=== PATIENT | male | born 1965 | race Caucasian/White ===

== ENCOUNTER 2017-08-31 18:05 | Emergency (ER) | payer OTHER ==
[~2017-08-31] VITALS: Ht 177.8 cm; Wt 78.6 kg
[2017-08-31 18:07] VITALS: TEMP 36.7; Ht 177.8 cm; Wt 78.6 kg
--- NOTE | 2017-08-31 18:38 | EMERGENCY ROOM VISIT NOTE ---
History First contact with patient: 18:11 Chief Complaint: ARM PAIN Stated Complaint: INJURED LEFT ARM/HIP - History of Present Illness The patient is a 52 year old male who presents to the Emergency Room via private vehicle with complaints of "injured left arm/hip". 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 He notes that the cow struck his right side and he has pain on his left side. He points to the left flank as location of pain in his left elbow region. He rates the pain as a 4/10. He estimates the weight of the count to be 8855-8008 pounds. He denies loss of consciousness. He denies any chest pain, shortness of breath, abdominal pain. Review of Systems A complete 10-point Review of Systems was discussed with the patient, with pertinent positives and negatives listed in the History of Present Illness. All remaining Review of Systems questions can be considered negative unless otherwise specified. Past Medical/Surgical History No pertinent. Family History Noncontributory. Social History Smoking Status: Never Smoker Patient is employed and lives locally. Current/Historical Medications Scheduled PRN Ibuprofen (Advil), 200-600 MG PO Q4H PRN for Pain or Fever Physical Exam Vital Signs Date Time Temp Pulse Resp B/P (MAP) Pulse Ox O2 Delivery O2 Flow Rate FiO2 08/31/17 20:25 75 16 140/83 98 Room Air 08/31/17 19:47 82 20 137/73 97 Room Air 08/31/17 18:07 36.7 84 16 148/80 96 Room Air Physical Exam VITAL SIGNS - Vital signs and nursing notes were reviewed. Stable. GENERAL -52-year-old male appearing his stated age who is in no acute distress. Communicates well with provider and answers questions appropriately. SKIN - Gross examination of the entire body surface demonstrates no lacerations to the body surface. These lacerations will not require repair. There is no ecchymosis noted over the body. There is note of a small abrasion just above the olecranon process of the left arm. HEAD - Normocephalic, Atraumatic. No Hill's Sign or Raccoon's Eyes. No depressed skull fractures palpable. EYES - PERRL with EOMI bilaterally. Without subconjunctival hemorrhage. Palpebral conjunctiva pink and moist with no injection. EARS - No deformities of external structures noted on gross examination bilaterally. No hemotympanum present. No tympanic perforation noted. Handle of malleus, umbo, cone of light, pars tensa/flaccid all easily visualized. NOSE - Midline and without cyanosis. No epistaxis or clear watery discharge noted. Septum midline without deviation. No septal hematoma noted. No overlying ecchymosis noted. MOUTH/OROPHARYNX - Without perioral cyanosis. Tongue midline with equal elevation of palate bilaterally. No blood noted in the oropharynx. No tonsillar hypertrophy, erythema, or exudates noted. No dental fractures noted. NECK -no tenderness to palpation over the cervical spinous processes. No cervical paraspinal muscle tenderness noted. LUNGS - Chest wall symmetric without accessory muscle use, intercostals retractions, or central cyanosis. No flail chest or depressed fractures noted. No paradoxical chest wall movements noted. Normal vesicular breath sounds CTA B/ L. No wheezes, rales, or rhonchi appreciated. CARDIAC - RRR with S1/S2. No murmur, rubs, or gallops appreciated. ABDOMEN - Abdominal contour normal and without pulsations or visible masses. BS normoactive all four quadrants. No rebound tenderness or guarding noted. Negative Sadiq's or Tello Klein's Signs. No tenderness, palpable masses, hepatosplenomegaly, or ascites noted. Left flank tenderness noted. EXTREMITIES - No gross deformities noted of the extremities. There is over the left elbow, and the tenderness to palpation left flank just above the left hip. No hip tenderness. +5/5 strength noted in UE/LE bilaterally. NEUROLOGIC - Cranial nerves II through XII grossly intact. Sensory intact to light touch throughout. PSYCH - A&O, and cooperates fully with examiner. Pt is very pleasant and interacts well with examiner. Medical Decision & Procedures ER Provider Diagnostic Interpretation: LEFT ELBOW 3 VIEWS CLINICAL HISTORY: Left arm injury. FINDINGS: 3 views of the left elbow are obtained. No prior studies are available for comparison at the time of dictation. The skeletal structures are well mineralized. No fracture is seen. The joint spaces of the elbow are well-maintained. The overlying soft tissues are normal as imaged. IMPRESSION: There is no radiographic evidence of left elbow fracture. Electronically signed by: Darren Beverly M.D. 08/31/2017 6:59 PM Dictated Date/Time: 08/31/2017 6:[address] SCAN OF THE CHEST, ABDOMEN, AND PELVIS WITH IV CONTRAST CLINICAL HISTORY: Trauma. A cow fell on the patient. COMPARISON STUDY: No priors. TECHNIQUE: Following the IV administration of 94 of Optiray 320, CT scan of the chest, abdomen, and pelvis was performed from the thoracic inlet to the proximal femora. Images are reviewed in the axial, sagittal, and coronal planes. IV contrast was administered without complication. Automated dose control exposure was utilized. A dose lowering technique was utilized adhering to the principles of ALARA. CT DOSE: 587.72 mGy.cm FINDINGS: CHEST: Thyroid: Imaged portions of the thyroid gland are normal in size and attenuation. Thoracic aorta: The thoracic aorta is normal in caliber and demonstrates standard 3-vessel arch anatomy. No dissection is seen. Pulmonary vasculature: The pulmonary trunk is normal in caliber. There are no filling defects identified in the central pulmonary vessels to indicate pulmonary embolus. Note that this examination was not protocoled for evaluation of the pulmonary arteries. Heart: The heart is normal in size and configuration, and without pericardial effusion. Lungs and pleural spaces: The lungs and pleural spaces are clear. Noting dependent atelectasis. No pneumothorax is identified. The trachea and central airways are patent. Mediastinum: There is no mediastinal hematoma or lymphadenopathy. Renee: Clear. Axillae: There is no axillary lymphadenopathy. Bony thorax: The bony thorax appears intact. Scattered hemangiomas are noted throughout the thoracic spine. No lytic or blastic lesions are identified. ABDOMEN AND PELVIS: Liver: The contrast-enhanced liver is normal in size, contour, and attenuation. There is no intrahepatic or ductal dilatation. The hepatic veins and portal veins are patent. Gallbladder: Unremarkable. Spleen: Normal in size and attenuation. Pancreas: Unremarkable. Adrenal glands: Unremarkable. Kidneys: The contrast enhanced kidneys are normal in size and without hydronephrosis. The kidneys enhance symmetrically. Abdominal vasculature: The abdominal aorta is normal in course and caliber. Bowel: The small bowel and colon are normal in course and caliber. The appendix is well-visualized and normal. Peritoneum: There is no intraperitoneal free air or abdominal ascites. Lymphadenopathy: None. Pelvic viscera: The bladder, prostate, and seminal vesicles are normal as visualized. Skeletal structures: The lumbosacral spine and bony pelvis appear intact. No lytic or blastic lesions are seen. IMPRESSION: 1. There is no acute posttraumatic intrathoracic abnormality. 2. The lungs are clear. No pneumothorax is seen. 3. No fracture is identified. 4. There is no evidence of solid organ injury in the abdomen or pelvis. Electronically signed by: Darren Beverly M.D. 08/31/2017 7:47 PM Dictated Date/Time: 08/31/2017 7:35 PM Laboratory Results Test 08/31/17 18:25 08/31/17 18:35 Bedside Hemoglobin 16.7 g/dl (14.0-18.0) Bedside Hematocrit 49 % (42-52) Bedside Sodium 140 mEq/L (135-144) Bedside Potassium 4.2 mEq/L (3.3-5.0) Bedside Chloride 103 mEq/L (101-112) Bedside Total CO2 28 mEq/l (24-31) Anion Gap 15.0 mmol/L (16-25) Bedside Blood Urea Nitrogen 22 mg/dl (7-18) Bedside Creatinine 1.1 mg/dl (0.6-1.3) Bedside Glucose (other) 98 mg/dl (70-99) Bedside Ionized Calcium (Shad) 1.12 mmol/l (1.12-1.32) Urine Color YELLOW Urine Appearance CLEAR (CLEAR) Urine pH 5.0 (4.5-7.5) Urine Specific [place] 1.019 (1.000-1.030) Urine Protein NEG (NEG) Urine Glucose (UA) NEG (NEG) Urine Ketones NEG (NEG) Urine Occult Blood NEG (NEG) Urine Nitrite NEG (NEG) Urine Bilirubin NEG (NEG) Urine Urobilinogen NEG (NEG) Urine Leukocyte Esterase NEG (NEG) Medical Decision Patient was seen and evaluated as above in room D3. He presents today status post injury where a cow essentially fell onto him pinning him against a gate. Review was performed of nursing notes and vital signs. After obtaining a thorough history and physical examination the above work up was performed. I did elect to obtain CT scan of the patient's chest, abdomen and pelvis secondary to his presentation and mechanism of injury. He is quite tender in the left flank. X-ray was obtained of the left elbow and found to be negative. He was given an arm sling. Likely soft tissue contusion. He was educated upon risk of occult fracture. CT scan results as above. No acute injury. I suspect likely muscle strain/bruise. He is to follow with the approved Worker' s Compensation individual/family doctor or return with worsening. He does appear to be dehydrated upon his blood work and is to follow with the family doctor. He is to hydrate. The patient was educated upon management, had questions answered prior to discharge, and was discharged home in good condition. In the evaluation and treatment of this patient the following differential diagnoses were entertained: Acute intrathoracic or intra-abdominal injury, fracture, dislocation, among others. 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 Patient Instructions My [facility] Additional Instructions You have been treated in the Emergency Department for Elbow Pain and left flank/ hip pain. Please call the family doctor to schedule follow-up regarding your injury today , as well as the approved Worker's Compensation follow-up individual. The family doctor may want to repeat your kidney function as your BUN was slightly elevated here likely indicating dehydration. Please drink plenty of water and Gatorade over the next few days. For pain control, you can use the following [id number] medicines (if >12 yo): - Regular strength (325mg/tab) Tylenol (acetaminophen) 2 tabs every 4-6 hours as needed. Do not exceed 12 tablets in a 24 hour period. Avoid taking more than 3 grams (3000 mg) of Tylenol per day. This includes any other sources of acetaminophen you may take on a regular basis. - Regular strength (200 mg/tab) Advil (ibuprofen) 1-2 tabs every 4-6 hours as needed. Do not exceed a dose of 3200 mg per day. If this is a recent injury (<24 hrs), ice can be applied to the area of pain for the first 3 days to help decrease pain and inflammation. You have been provided the number for an Orthopaedic Surgeon. You should call this number as soon as possible to establish a follow-up visit from today's Emergency Department visit. Keep the sling/splint in place until evaluated by Orthopedics, workers comp doctor, family doctor or pain free. Return to the Emergency Department if your current symptoms worsen despite treatment course outlined above, or if you develop any of the following symptoms : intractable pain despite aforementioned treatment course or new onset of numbness or tingling of the arm. Problem Qualifiers
[2017-08-31 18:50] LABS: ISTAT CREATININE 1.1 mg/dl (0.6-1.3); ISTAT IONIZED CALCIUM 1.12 mmol/l (1.12-1.32); ISTAT POTASSIUM 4.2 mEq/L (3.3-5.0)
[2017-08-31] MEDS ORDERED: IBUP-1277 PO (18:55)
[2017-08-31] MEDS ORDERED: OPTIRAY 320 IV PRN (19:00)
--- NOTE | 2017-08-31 19:01 | DIAGNOSTIC IMAGING REPORT ---
LEFT ELBOW 3 VIEWS CLINICAL HISTORY: Left arm injury. FINDINGS: 3 views of the left elbow are obtained. No prior studies are available for comparison at the time of dictation. The skeletal structures are well mineralized. No fracture is seen. The joint spaces of the elbow are well-maintained. The overlying soft tissues are normal as imaged. IMPRESSION: There is no radiographic evidence of left elbow fracture. Electronically signed by: Darren Beverly M.D. 08/31/2017 6:59 PM Dictated Date/Time: 08/31/2017 6:58 PM
--- NOTE | 2017-08-31 19:48 | DIAGNOSTIC IMAGING REPORT ---
CT SCAN OF THE CHEST, ABDOMEN, AND PELVIS WITH IV CONTRAST CLINICAL HISTORY: Trauma. A cow fell on the patient. COMPARISON STUDY: No priors. TECHNIQUE: Following the IV administration of 94 of Optiray 320, CT scan of the chest, abdomen, and pelvis was performed from the thoracic inlet to the proximal femora. Images are reviewed in the axial, sagittal, and coronal planes. IV contrast was administered without complication. Automated dose control exposure was utilized. A dose lowering technique was utilized adhering to the principles of ALARA. CT DOSE: 587.72 mGy.cm FINDINGS: CHEST: Thyroid: Imaged portions of the thyroid gland are normal in size and attenuation. Thoracic aorta: The thoracic aorta is normal in caliber and demonstrates standard 3-vessel arch anatomy. No dissection is seen. Pulmonary vasculature: The pulmonary trunk is normal in caliber. There are no filling defects identified in the central pulmonary vessels to indicate pulmonary embolus. Note that this examination was not protocoled for evaluation of the pulmonary arteries. Heart: The heart is normal in size and configuration, and without pericardial effusion. Lungs and pleural spaces: The lungs and pleural spaces are clear. Noting dependent atelectasis. No pneumothorax is identified. The trachea and central airways are patent. Mediastinum: There is no mediastinal hematoma or lymphadenopathy. Renee: Clear. Axillae: There is no axillary lymphadenopathy. Bony thorax: The bony thorax appears intact. Scattered hemangiomas are noted throughout the thoracic spine. No lytic or blastic lesions are identified. ABDOMEN AND PELVIS: Liver: The contrast-enhanced liver is normal in size, contour, and attenuation. There is no intrahepatic or ductal dilatation. The hepatic veins and portal veins are patent. Gallbladder: Unremarkable. Spleen: Normal in size and attenuation. Pancreas: Unremarkable. Adrenal glands: Unremarkable. Kidneys: The contrast enhanced kidneys are normal in size and without hydronephrosis. The kidneys enhance symmetrically. Abdominal vasculature: The abdominal aorta is normal in course and caliber. Bowel: The small bowel and colon are normal in course and caliber. The appendix is well-visualized and normal. Peritoneum: There is no intraperitoneal free air or abdominal ascites. Lymphadenopathy: None. Pelvic viscera: The bladder, prostate, and seminal vesicles are normal as visualized. Skeletal structures: The lumbosacral spine and bony pelvis appear intact. No lytic or blastic lesions are seen. IMPRESSION: 1. There is no acute posttraumatic intrathoracic abnormality. 2. The lungs are clear. No pneumothorax is seen. 3. No fracture is identified. 4. There is no evidence of solid organ injury in the abdomen or pelvis. Electronically signed by: Darren Beverly M.D. 08/31/2017 7:47 PM Dictated Date/Time: 08/31/2017 7:35 PM
[2017-08-31 20:25] VITALS: BP 140/83; PULSE 75; O2SAT 98
== END 2017-08-31 20:36 | disposition home or self-care (01) ==
LOC: C.EDB 18:07 → C.EDD 20:36
DX: S50.312A Abrasion of left elbow, initial encounter (principal); R10.32 Left lower quadrant pain; W55.22XA Struck by cow, initial encounter; Y93.89 Activity, other specified